=== PATIENT | female | born 1940 | race Caucasian/White ===

== ENCOUNTER → 2016-08-02 | Outpatient (CLI) | payer MEDICARE, OTHER ==
[~2016-08-02] MED LIST: ASPIRIN E.C. 8181 MG PO; METOPROLOL SUCC50 M1 PO; SIMVASTATIN40 M1 PO; ZESTRIL 20MG TA20 MG PO
== END ==
LOC: LAB 08:54
DX: I10 Essential (primary) hypertension (principal); E78.00 Pure hypercholesterolemia, unspecified; R63.3 Feeding difficulties; E66.01 Morbid (severe) obesity due to excess calories

== ENCOUNTER → 2017-09-26 | Outpatient (CLI) | payer MEDICARE, OTHER ==
[2016-01-02 15:45] VITALS: BP 138/62
[2017-09-26 12:16] LABS: HEMATOCRIT 46.6 % (37.0-47.0); HEMOGLOBIN 14.8 g/dL (12.5-16.0); MEAN PLATELET VOLUME 10.5 fl (7.4-10.4); RED BLOOD COUNT 4.82 M/mm3 (4.10-5.30); RED CELL DISTRIBUTION WIDTH 13.7 % (11.5-14.5)
[2017-09-26 12:28] LABS: ALBUMIN 4.2 g/dL (3.5-5.0); CALCIUM 9.2 mg/dL (8.4-10.2); POTASSIUM 4.6 mmol/L (3.6-5.0); TOTAL BILIRUBIN 0.5 mg/dL (0.2-1.3); TOTAL PROTEIN 8.4 g/dL (6.3-8.2)
== END ==
LOC: LAB 11:48
PROVIDERS: Family Medicine
DX: I10 Essential (primary) hypertension (principal); E78.00 Pure hypercholesterolemia, unspecified; R63.3 Feeding difficulties; E66.01 Morbid (severe) obesity due to excess calories; D64.9 Anemia, unspecified

== ENCOUNTER → 2018-09-28 | Outpatient (CLI) | payer MEDICARE, OTHER ==
[2016-01-02 15:45] VITALS: BP 138/62
[2018-09-28 12:25] LABS: ALBUMIN 4.4 g/dL (3.5-5.0); CALCIUM 8.6 mg/dL (8.4-10.2); POTASSIUM 4.7 mmol/L (3.6-5.0); TOTAL PROTEIN 8.5 g/dL (6.3-8.2)
== END ==
LOC: LAB 11:34
PROVIDERS: Family Medicine
DX: E66.01 Morbid (severe) obesity due to excess calories (principal); I10 Essential (primary) hypertension; E78.5 Hyperlipidemia, unspecified; R63.3 Feeding difficulties

== ENCOUNTER → 2019-09-23 | Outpatient (CLI) | payer MEDICARE, OTHER ==
[2016-01-02 15:45] VITALS: BP 138/62
[2019-09-23 13:09] LABS: ALBUMIN 4.1 g/dL (3.4-4.8)
[2019-09-23 13:10] LABS: CALCIUM 9.3 mg/dL (8.3-10.5)
[2019-09-23 13:11] LABS: TOTAL PROTEIN 7.8 g/dL (6.2-8.1)
[2019-09-23 13:13] LABS: TOTAL BILIRUBIN 0.6 mg/dL (0.2-1.2)
== END ==
LOC: LAB 12:35
PROVIDERS: Family Medicine
DX: I10 Essential (primary) hypertension (principal); E78.5 Hyperlipidemia, unspecified; E66.01 Morbid (severe) obesity due to excess calories; R63.3 Feeding difficulties; R73.09 Other abnormal glucose

== ENCOUNTER → 2020-11-02 | Outpatient (CLI) | payer MEDICARE ==
[2016-01-02 15:45] VITALS: BP 138/62
[2020-11-02 13:50] LABS: ALBUMIN 4.1 g/dL (3.4-4.8); POTASSIUM 4.3 mmol/L (3.5-5.1)
[2020-11-02 13:55] LABS: TOTAL BILIRUBIN 0.8 mg/dL (0.2-1.2)
== END ==
LOC: LAB 13:12
PROVIDERS: Family Medicine
DX: I10 Essential (primary) hypertension (principal); E78.5 Hyperlipidemia, unspecified; R73.03 Prediabetes

== ENCOUNTER → 2021-10-26 | Outpatient (CLI) | payer MEDICARE | LOC: RAD 13:52 | DX: M16.0 Bilateral primary osteoarthritis of hip (principal) ==

== ENCOUNTER → 2021-10-26 | Outpatient (CLI) | payer MEDICARE ==
[2021-10-26 12:58] LABS: POTASSIUM 3.9 mmol/L (3.5-5.1)
[2021-10-26 12:59] LABS: ALBUMIN 4.2 g/dL (3.4-4.8)
[2021-10-26 13:00] LABS: CALCIUM 9.3 mg/dL (8.3-10.5)
[2021-10-26 13:01] LABS: TOTAL PROTEIN 8.1 g/dL (6.2-8.1)
[2021-10-26 13:03] LABS: TOTAL BILIRUBIN 0.9 mg/dL (0.2-1.2)
== END ==
LOC: LAB 12:34
PROVIDERS: Family Medicine
DX: I10 Essential (primary) hypertension (principal); E78.5 Hyperlipidemia, unspecified; R73.03 Prediabetes

== ENCOUNTER → 2021-11-26 | Outpatient (CLI) | payer MEDICARE ==
[2021-11-26 15:54] LABS: BASO # 0.02 K/mm3 (0.02-0.10); EOS # 0.03 K/mm3 (0.04-0.40); EOS % 0.5 % (1.0-5.0); HEMATOCRIT 45.1 % (37.0-47.0); HEMOGLOBIN 14.2 g/dL (12.5-16.0); LYMPH# 0.71 K/mm3 (1.50-4.00); MEAN CELL VOLUME 95 fl (78-100); MEAN CORPUSCULAR HEMOGLOBIN 30 pg (27-31); MEAN CORPUSCULAR HGB CONC 32 g/dL (33-37); MEAN PLATELET VOLUME 10.5 fl (7.4-10.4); MONO # 0.54 K/mm3 (0.20-0.80); NEU # 4.45 K/mm3 (1.40-6.50); PLATELET COUNT 223 K/mm3 (130-400); RED BLOOD COUNT 4.73 M/mm3 (4.10-5.30); WHITE BLOOD COUNT 5.8 K/mm3 (4.8-10.8)
[2021-11-26 16:17] LABS: URINE APPEARANCE HAZY; URINE COLOR YELLOW
[2021-11-26 16:18] LABS: PH-URINE 7.5 (5.0 - 8.0); URINE BILIRUBIN NEGATIVE (NEGATIVE); URINE BLOOD NEGATIVE (NEGATIVE); URINE GLUCOSE NEGATIVE (NEGATIVE); URINE KETONE NEGATIVE (NEGATIVE); URINE LEUKOCYTE ESTERASE 1+ (NEGATIVE); URINE NITRATE NEGATIVE (NEGATIVE); URINE PROTEIN(semi-quant) NEGATIVE (NEGATIVE); URINE UROBILINOGEN NORMAL (NORMAL)
== END ==
LOC: LAB 15:20
PROVIDERS: Family Medicine
DX: M25.551 Pain in right hip (principal)